=== PATIENT | female | born 1945 | race Caucasian/White ===

== ENCOUNTER 2019-06-22 10:33 | Day surgery (SDC) | payer MEDICARE ==
[~2019-06-22] VITALS: Ht 165.1 cm; Wt 141.8 kg
[~2019-06-22 10:33] MED LIST: AMLO10TA7 PO; CHOL50004 PO; FLUO-191 PO; GABA-531 PO; METO25 PO; PANT40TA25 PO; SIMV-260 PO; SODIUM CHLORIDE 0.9% 1,000 ML IV ONE; WARF5 PO; WARF7.5 PO
[2019-06-22] MEDS ORDERED: SODIUM CHLORIDE 0.9% 1,000 ML IV ONE (11:00)
[2019-06-22 12:26] LABS: INR 1.1 (0.9-1.1)
== END 2019-06-22 14:35 | disposition home or self-care (01) ==
LOC: SURGERY 10:33
PROVIDERS: ATTEND Student in an Organized Health Care Education/Training Program
DX: K31.7 Polyp of stomach and duodenum (principal); K29.50 Unspecified chronic gastritis without bleeding; K21.9 Gastro-esophageal reflux disease without esophagitis; E66.9 Obesity, unspecified; I10 Essential (primary) hypertension; M19.90 Unspecified osteoarthritis, unspecified site; Z85.3 Personal history of malignant neoplasm of breast; Z86.711 Personal history of pulmonary embolism; Z85.820 Personal history of malignant melanoma of skin; Z79.899 Other long term (current) drug therapy; Z88.0 Allergy status to penicillin; Z88.8 Allergy status to other drugs, medicaments and biological substances; Z91.041 Radiographic dye allergy status; Z97.3 Presence of spectacles and contact lenses; Z90.49 Acquired absence of other specified parts of digestive tract; Z90.710 Acquired absence of both cervix and uterus; Z96.653 Presence of artificial knee joint, bilateral; Z98.890 Other specified postprocedural states
CPT/HCPCS: 36415; 43239; 85610; 85730; 88305; 88312; 88313; 93005; C1769; J7030